=== PATIENT | male | born 1990 ===

== ENCOUNTER 2017-05-29 14:05 | Outpatient (CLI) | payer BC ==
--- NOTE | 2017-05-30 12:52 | XRay Report ---
XRAY RIGHT HIP THREE VIEWS: 14:05:00 CLINICAL: Pain. FINDINGS: Status post ORIF of a right hip fracture with a nail with a plate and screws. Normal appearance of the hardware. Remodeling of the bone at the medial aspect of the proximal femur. No fracture lines. Mild heterotopic new bone formation at the hip. No acute fracture and no dislocation. Moderate osteoarthritis of the right hip with narrowing of the joint space and superior acetabular eburnation. The pelvic bones are intact. Mild arthritis of the left hip with superior acetabular eburnation and mild narrowing of the superolateral joint space. IMPRESSION: Status post ORIF of a remote right hip fracture. Moderate osteoarthritis of the right hip and mild osteoarthritis of the left hip.
== END 2017-05-29 14:06 | disposition home or self-care (01) ==
LOC: SPVIMAG 14:05
PROVIDERS: ATTEND Orthopaedic Surgery Sports Medicine
DX: M16.0 Bilateral primary osteoarthritis of hip (principal); S72.001D Fracture of unspecified part of neck of right femur, subsequent encounter for closed fracture with routine healing; X58.XXXD Exposure to other specified factors, subsequent encounter